=== PATIENT | male | born 1980 | race Caucasian/White ===

== ENCOUNTER 2018-08-18 10:45 | Observation (INO) | payer OTHER ==
[2018-08-18] MEDS ORDERED: HYDROmorphONE/DILAUDID 2 MG/ML INJ IVP ONE (11:16)
[2018-08-18] MEDS ORDERED: ONDANSETRON 4 MG/2 ML VIAL IVP ONE (11:16)
[2018-08-18] MEDS ORDERED: NS 1,000 ML IV ONE (11:16)
--- NOTE | 2018-08-18 11:31 | EDPHY ---
H & P Stated Complaint: RLQ pain since yesterday;sent from [facility] for eval Time Seen by Provider: 08/18/18 11:31 HPI/ROS: HPI: This is a 38-year-old male who presents with Chief Complaint: RLQ pain since yesterday;sent from [facility] for eval Location: Right lower quadrant abdominal Quality: Pain Duration: Since yesterday afternoon lunch Signs and Symptoms: no fever, no nausea, no vomiting, no hematemesis, no blood in stool, no abdominal bloating, no diarrhea, no back pain, no urinary symptoms , no testicular/groin pain, no indigestion, no chest pain, no shortness of breath Timing: Acute, constant Severity: Moderate Context: Patient is generally healthy, presents with sudden onset of periumbilical pain yesterday after lunch that has now radiated into his right lower quadrant. Pain in his right lower quadrant is constant, moderate. He has not eaten anything since yesterday at lunch. He denies any urinary symptoms , nausea, vomiting, fever. He had a bowel movement this morning and felt some pressure in his back. He thought yesterday he may have had some gas pain but the symptoms have persisted. No history of kidney stones. Modifying Factors: None Comment: ROS: A comprehensive 10 system review of systems is otherwise negative aside from elements mentioned in the history of present illness. MEDICAL/SURGICAL/SOCIAL HISTORY: Medical history: Generally healthy. Does not take any regular medications. Surgical history: Denies Social history: Former smoker. Enrolled in master's program. Family history noncontributory. CONSTITUTIONAL: Extremely polite and cooperative, nontoxic-appearing, obese white male, awake and alert, no obvious distress HEENT: Atraumatic and normocephalic, PERRL, EOMI. Nares patent; no rhinorrhea; no nasal mucosal edema. Tympanic membranes clear. Oropharynx clear, no exudate and moist pink mucosa. Airway patent. No lymphadenopathy. No meningismus. Cardiovascular: Normal S1/S2, regular rate, regular rhythm, without murmur rub or gallop. PULMONARY/CHEST: Symmetrical and nontender. Clear to auscultation bilaterally. Good air movement. No accessory muscle usage. ABDOMEN: Soft, nondistended, moderate right lower quadrant tenderness, no rebound, + guarding, no peritoneal signs, no masses or organomegaly. No CVAT. EXTREMITIES: 2/2 pulses, strength 5/5, no deformities, no clubbing, no cyanosis or edema. NEUROLOGICAL: no focal neuro deficits. GCS 15. SKIN: Warm and dry, no erythema. no rash. Good capillary refill. Source: Patient Exam Limitations: No limitations - Personal History Current Tetanus Diphtheria and Acellular Pertussis (TDAP): Yes - Social History Smoking Status: Former smoker Constitutional: Initial Vital Signs Temperature (C) 36.7 C 08/18/18 10:47 Heart Rate 65 08/18/18 10:47 Respiratory Rate 16 08/18/18 10:47 Blood Pressure 132/88 H 08/18/18 10:47 O2 Sat (%) 96 08/18/18 10:47 O2 Delivery Mode Room Air Allergies/Adverse Reactions: No Known Allergies Allergy (Verified 08/18/18 13:05) Home Medications: Medication Instructions Recorded NK [No Known Home Meds] 08/18/18 Medical Decision Making ED Course/Re-evaluation: Vital signs reviewed and stable upon arrival. IV access and laboratory studies obtain. Given 1 L normal saline, IV Dilaudid 0.5 mg, IV Zofran [address] abdomen and pelvis scan ordered to evaluate for appendicitis. 1200: Labs reviewed. No signs of anemia/platelet dysfunction/LIGIA/elevated LFTs /electrolyte imbalance/pancreatitis. WBC 112.75, concerning for leukemia 1245: Called by Radiology, Dr. Snider, who advised that CT abdomen and pelvis scan shows acute appendicitis measuring 11 mm. Given Meropenem after consultation with attending. Called lab and they are working on the differential regarding the elevated white blood cell count. 1250: ED decision to consult General surgery. Spoke with Dr. Walker, who kindly agrees to admit patient and perform appendectomy. Patient understands that he will need oncology consult regarding his elevated white blood cell count. 1305: Consult Oncology. Spoke with Dr. Chan Morrow. reviewed labs. Suspect leukemoid reaction. Will kindly consult on patient. This patient was seen under the supervision of my secondary supervising physician. I evaluated care for this patient independently. Discussed this patient with Dr. Esparza. Differential Diagnosis: Abdominal pain including but not limited to appendicitis, cholecystitis, gastritis and urinary tract infection. - Data Points Laboratory Results: Laboratory Results 08/18/18 11:13 08/18/18 11:13 08/18/18 08/18/18 08/18/18 11:18 11:13 11:13 WBC 112.75 10^3/uL H* 10^3/uL (3.80-9.50) RBC 4.45 10^6/uL 10^6/uL (4.40-6.38) Hgb 14.0 g/dL g/dL (13.7-17.5) POC Hgb 15.6 gm/dL gm/dL (13.7-17.5) Hct 42.2 % % (40.0-51.0) POC Hct 46 % % (40-51) MCV 94.8 fL fL (81.5-99.8) MCH 31.5 pg pg (27.9-34.1) MCHC 33.2 g/dL g/dL (32.4-36.7) RDW 15.9 % H % (11.5-15.2) Plt Count 214 10^3/uL 10^3/uL (150-400) MPV 9.8 fL fL (8.7-11.7) Neut % (Auto) Not Reported Lymph % (Auto) Not Reported [place] % (Auto) Not Reported Eos % (Auto) Not Reported Baso % (Auto) Not Reported Nucleat RBC Rel Count Not Reported Absolute Neuts (auto) Not Reported Absolute Lymphs (auto) Not Reported Absolute Monos (auto) Not Reported Absolute Eos (auto) Not Reported Absolute Basos (auto) Not Reported Absolute Nucleated RBC Not Reported Immature Gran % Not Reported Immature Gran # Not Reported Platelet Estimate Pending Smear Review By Pending POC Sodium 140 mEq/L mEq/L (135-145) Sodium 139 mEq/L mEq/L (135-145) POC Potassium 3.7 mEq/L mEq/L (3.3-5.0) Potassium 4.0 mEq/L mEq/L (3.3-5.0) POC Chloride 104 mEq/L mEq/L (97-110) Chloride 102 mEq/L mEq/L (97-110) Carbon Dioxide 26 mEq/l mEq/l (22-31) Anion Gap 11 mEq/L mEq/L (6-14) POC BUN 12 mg/dL mg/dL (7-23) BUN 13 mg/dL mg/dL (7-23) Creatinine 1.1 mg/dL mg/dL (0.7-1.3) POC Creatinine 1.1 mg/dL mg/dL (0.7-1.3) Estimated GFR > 60 Glucose 91 mg/dL mg/dL (70-100) POC Glucose 93 mg/dL mg/dL (70-100) Calcium 9.5 mg/dL mg/dL (8.5-10.4) Total Bilirubin 0.9 mg/dL mg/dL (0.1-1.4) Conjugated Bilirubin 0.2 mg/dL mg/dL (0.0-0.5) Unconjugated Bilirubin 0.7 mg/dL mg/dL (0.0-1.1) AST 32 IU/L IU/L (17-59) ALT 44 IU/L IU/L (21-72) Alkaline Phosphatase 60 IU/L IU/L (38-126) Total Protein 7.2 g/dL g/dL (6.3-8.2) Albumin 4.5 g/dL g/dL (3.5-5.0) Lipase 32 IU/L IU/L (23-300) Medications Given: Ceftriaxone Sodium 2 gm/ (Sodium Chloride) 50 mls @ 100 mls/hr IV EDNOW ONE PRN Reason: Protocol Stop: 08/18/18 13:14 Last Admin: 08/18/18 12:52 Dose: Not Given Metronidazole/Sodium Chloride (Flagyl 500 Mg (Premix)) 100 mls @ 100 mls/hr IV EDNOW ONE PRN Reason: Protocol Stop: 08/18/18 13:44 Last Admin: 08/18/18 12:52 Dose: Not Given Discontinued Medications Hydromorphone HCl (Dilaudid) 0.5 mg IVP EDNOW ONE Stop: 08/18/18 11:17 Last Admin: 08/18/18 11:41 Dose: 0.5 mg Sodium Chloride (Ns) 1,000 mls @ 0 mls/hr IV EDNOW ONE; Wide Open PRN Reason: Protocol Stop: 08/18/18 11:17 Last Admin: 08/18/18 11:41 Dose: 1,000 mls Ondansetron HCl (Zofran) 4 mg IVP EDNOW ONE Stop: 08/18/18 11:17 Last Admin: 08/18/18 11:41 Dose: 4 mg Point of Care Test Results: Chemistry 08/18/18 11:18 POC Sodium 140 mEq/L mEq/L (135-145) POC Potassium 3.7 mEq/L mEq/L (3.3-5.0) POC Chloride 104 mEq/L mEq/L (97-110) POC BUN 12 mg/dL mg/dL (7-23) POC Creatinine 1.1 mg/dL mg/dL (0.7-1.3) POC Glucose 93 mg/dL mg/dL (70-100) ISTAT H&H 08/18/18 11:18 POC Hgb 15.6 gm/dL gm/dL (13.7-17.5) POC Hct 46 % % (40-51) Departure - Departure Disposition: [facility] Acute Clinical Impression: Acute appendicitis with localized peritonitis Qualifiers: Appendicitis gangrene presence: without gangrene Appendicitis perforation presence: without perforation Appendicitis abscess presence: without abscess Qualified Code(s): K35.30 - Acute appendicitis with localized peritonitis, without perforation or gangrene Elevated white blood cell count Qualifiers: Leukocytosis type: other Qualified Code(s): D72.828 - Other elevated white blood cell count Condition: Fair
[2018-08-18] MEDS ORDERED: IOPAMIDOL (ISOVUE-300) 100 ML BTL ONE ×2 (11:45→11:54)
[2018-08-18 12:44] LABS: PLATELET COUNT 214 10^3/uL (150-400)
[2018-08-18] MEDS ORDERED: MEROPENEM 1 GM in NS 100 ML IV ONE (12:51)
--- NOTE | 2018-08-18 13:23 | PDGENHP ---
History and Physical - Chief Complaint abdominal pain - History of Present Illness 38yo M. Had lunch yesterday, ever since had some pain which was initially ascribed to indigestion. The pain persisted and worsened through the night. Overnight, he also endorses chills. When the pain started to shift from benitez- umbilical to RLQ this AM he suspected appendicitis and presented for workup. In the ED c/o RLQ pain 5/10 in intensity, worse with movement, non-radiating. Endorses chills, denies fevers and nausea or vomiting. History Information - Allergies/Home Medication List Allergies/Adverse Reactions: No Known Allergies Allergy (Verified 08/18/18 13:05) Home Medications: NK [No Known Home Meds] 08/18/18 [Last Taken Unknown] I have personally reviewed and updated: family history, medical history, social history, surgical history Past Medical History: occasional GERD, poss gluten allergy per report - Surgical History Reports: no pertinent surgical hx - Family History Additional family history: mom: colon ca, some brain tumors (non-malignant), CAD. 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 Review of Systems Review of Systems: ROS: 10pt was reviewed & negative except for what was stated in HPI & below Physical Exam Physical Exam: Temp Pulse Resp BP Pulse Ox 36.8 C 90 16 129/82 H 97 08/18/18 12:56 08/18/18 12:56 08/18/18 12:56 08/18/18 12:56 08/18/18 12:56 Constitutional: no apparent distress, appears nourished, not in pain Eyes: PERRL, anicteric sclera, EOMI Ears, Nose, Mouth, Throat: moist mucous membranes, hearing normal, ears appear normal, no oral mucosal ulcers Cardiovascular: regular rate and rhythym, no murmur, rub, or gallop, No edema Respiratory: no respiratory distress, no rales or rhonchi, clear to auscultation Gastrointestinal: other (soft, nondistended, TTP in the RLQ, no rebound or guarding ) Genitourinary: no bladder fullness, no bladder tenderness Skin: warm, normal color, no rashes or abrasions, no fluctuance, no induration, No mottled Musculoskeletal: full muscle strength, no muscle tenderness, normal joint ROM, no joint effusions Psychiatric: interacting appropriately, not anxious, not encephalopathic, thought process linear Lymph, Heme, Immunologic: no cervical LAD, no supraclavicular LAD Lab Data & Imaging Review 08/18/18 11:13 08/18/18 11:13 WBC 112.75 10^3/uL (3.80-9.50) H* 08/18/18 11:13 RBC 4.45 10^6/uL (4.40-6.38) 08/18/18 11:13 Hgb 14.0 g/dL (13.7-17.5) 08/18/18 11:13 POC Hgb 15.6 gm/dL (13.7-17.5) 08/18/18 11:18 Hct 42.2 % (40.0-51.0) 08/18/18 11:13 POC Hct 46 % (40-51) 08/18/18 11:18 MCV 94.8 fL (81.5-99.8) 08/18/18 11:13 MCH 31.5 pg (27.9-34.1) 08/18/18 11:13 MCHC 33.2 g/dL (32.4-36.7) 08/18/18 11:13 RDW 15.9 % (11.5-15.2) H 08/18/18 11:13 Plt Count 214 10^3/uL (150-400) 08/18/18 11:13 MPV 9.8 fL (8.7-11.7) 08/18/18 11:13 Neut % (Auto) Not Reported 08/18/18 11:13 Lymph % (Auto) Not Reported 08/18/18 11:13 [place] % (Auto) Not Reported 08/18/18 11:13 Eos % (Auto) Not Reported 08/18/18 11:13 Baso % (Auto) Not Reported 08/18/18 11:13 Nucleat RBC Rel Count Not Reported 08/18/18 11:13 Absolute Neuts (auto) Not Reported 08/18/18 11:13 Absolute Lymphs (auto) Not Reported 08/18/18 11:13 Absolute Monos (auto) Not Reported 08/18/18 11:13 Absolute Eos (auto) Not Reported 08/18/18 11:13 Absolute Basos (auto) Not Reported 08/18/18 11:13 Absolute Nucleated RBC Not Reported 08/18/18 11:13 Immature Gran % Not Reported 08/18/18 11:13 Seg Neutrophils % 50.9 % 08/18/18 11:13 Band Neutrophils % 9.3 % 08/18/18 11:13 Lymphocytes % 11.1 % 08/18/18 11:13 Monocytes % 4.6 % 08/18/18 11:13 Eosinophils % 1.9 % 08/18/18 11:13 Basophils % 0.9 % 08/18/18 11:13 Metamyelocytes % 7.4 % 08/18/18 11:13 Myelocytes % 9.3 % 08/18/18 11:13 Promyelocytes % 4.6 % 08/18/18 11:13 Immature Gran # Not Reported 08/18/18 11:13 Absolute Seg Neuts 55.00 10^3/uL (1.70-6.50) H 08/18/18 11:13 Absolute Band Neuts 10.00 10^3/uL (0.00-0.70) H 08/18/18 11:13 Absolute Lymphocytes 12.00 10^3/uL (1.00-3.00) H 08/18/18 11:13 Absolute Monocytes 5.00 10^3/uL (0.30-0.80) H 08/18/18 11:13 Absolute Eosinophils 2.00 10^3/uL (0.03-0.40) H 08/18/18 11:13 Absolute Basophils 1.00 10^3/uL (0.02-0.10) H 08/18/18 11:13 Absolute Metamyelocyte 8.00 10^3/mL (0.00-0.00) H 08/18/18 11:13 Absolute Myelocytes 10.00 10^3/mL (0.00-0.00) H 08/18/18 11:13 Absolute Promyelocytes 5.00 10^3/uL (0.00-0.00) H 08/18/18 11:13 Platelet Estimate ADEQUATE (ADEQ) 08/18/18 11:13 Polychromasia 2+ H 08/18/18 11:13 POC Sodium 140 mEq/L (135-145) 08/18/18 11:18 Sodium 139 mEq/L (135-145) 08/18/18 11:13 POC Potassium 3.7 mEq/L (3.3-5.0) 08/18/18 11:18 Potassium 4.0 mEq/L (3.3-5.0) 08/18/18 11:13 POC Chloride 104 mEq/L (97-110) 08/18/18 11:18 Chloride 102 mEq/L (97-110) 08/18/18 11:13 Carbon Dioxide 26 mEq/l (22-31) 08/18/18 11:13 Anion Gap 11 mEq/L (6-14) 08/18/18 11:13 POC BUN 12 mg/dL (7-23) 08/18/18 11:18 BUN 13 mg/dL (7-23) 08/18/18 11:13 Creatinine 1.1 mg/dL (0.7-1.3) 08/18/18 11:13 POC Creatinine 1.1 mg/dL (0.7-1.3) 08/18/18 11:18 Estimated GFR > 60 08/18/18 11:13 Glucose 91 mg/dL (70-100) 08/18/18 11:13 POC Glucose 93 mg/dL (70-100) 08/18/18 11:18 Calcium 9.5 mg/dL (8.5-10.4) 08/18/18 11:13 Total Bilirubin 0.9 mg/dL (0.1-1.4) 08/18/18 11:13 Conjugated Bilirubin 0.2 mg/dL (0.0-0.5) 08/18/18 11:13 Unconjugated Bilirubin 0.7 mg/dL (0.0-1.1) 08/18/18 11:13 AST 32 IU/L (17-59) 08/18/18 11:13 ALT 44 IU/L (21-72) 08/18/18 11:13 Alkaline Phosphatase 60 IU/L (38-126) 08/18/18 11:13 Total Protein 7.2 g/dL (6.3-8.2) 08/18/18 11:13 Albumin 4.5 g/dL (3.5-5.0) 08/18/18 11:13 Lipase 32 IU/L (23-300) 08/18/18 11:13 Visualized and Interpreted imaging results: Yes Interpretation: CT: acute appendicitis, normal spleen, no lymphadenopathy Assessment & Plan Assessment: Acute appendicitis with localized peritonitis (Acute) Elevated white blood cell count (Acute) Plan: 38yo M c acute appendicitis - IV abx in ED. To OR for lap appy - also has significantly elevated WBC of 112k, has asked heme/onc to eval the patient, unclear etiology but no "B" type Sx and no concerning findings on abdominal imaging
[2018-08-18] MEDS ORDERED: BUPIVACAINE 0.25% 30 ML SDV ONE (13:40)
[2018-08-18] MEDS ORDERED: EPINEPHrine 1 MG/ML INJ ONE (13:40)
[2018-08-18] MEDS ORDERED: CITRIC ACID/SODIUM CITRATE 30 ML UDCUP PO ONE (14:00)
--- NOTE | 2018-08-18 14:00 | PDANEPAE ---
ANE Past Medical History - Cardiovascular History Hx Hypertension: No Hx Arrhythmias: No Hx Chest Pain: No Hx Coronary Artery / Peripheral Vascular Disease: No Hx CHF / Valvular Disease: No Hx Palpitations: No - Pulmonary History Hx COPD: No Hx Asthma/Reactive Airway Disease: No Hx Recent Upper Respiratory Infection: No Hx Oxygen in Use at Home: No Hx Sleep Apnea: No ANE Review of Systems Review of Systems: ANE Patient History - Allergies Allergies/Adverse Reactions: No Known Allergies Allergy (Verified 08/18/18 13:05) - Home Medications Home Medications: NK [No Known Home Meds] 08/18/18 [Last Taken Unknown] - NPO status NPO Since - Liquids (Date): 08/18/18 NPO Since - Liquids (Time): 09:00 NPO Since - Solids (Date): 08/17/18 NPO Since - Solids (Time): 13:00 - Smoking Hx Smoking Status: Former smoker - Alcohol Use Alcohol Use: Occasionally ANE Labs/Vital Signs - Labs Result Diagrams: 08/18/18 11:13 08/18/18 11:13 - Vital Signs Blood Pressure: 125/77 Heart Rate: 76 Respiratory Rate: 16 O2 Sat (%): 96 Height: 172.72 cm Weight: 111.13 kg ANE Physical Exam - Airway Neck exam: FROM Mallampati Score: Class 1 Mouth exam: normal dental/mouth exam - Pulmonary Pulmonary: no respiratory distress - Cardiovascular Cardiovascular: regular rate and rhythym - ASA Status ASA Status: II ANE Anesthesia Plan Anesthesia Plan: general endotracheal anesthesia
[2018-08-18] MEDS ORDERED: CITRIC ACID/SODIUM CITRATE 30 ML UDCUP ONE (14:02)
[2018-08-18] MEDS ORDERED: PROPOFOL 200 MG/20 ML VIAL ONE ×2 (14:04→14:21)
[2018-08-18] MEDS ORDERED: fentaNYL 250 MCG/5 ML INJ ONE (14:04)
[2018-08-18] MEDS ORDERED: DEXAMETHASONE 4 MG/ML VIAL ONE (14:43)
[2018-08-18] MEDS ORDERED: GLYCOPYRROLATE 0.2 MG/1 ML VIAL ONE ×3 (14:43)
[2018-08-18] MEDS ORDERED: LIDOCAINE 2% 5 ML SDV ONE (14:44)
[2018-08-18] MEDS ORDERED: ONDANSETRON 4 MG/2 ML VIAL ONE (14:44)
[2018-08-18] MEDS ORDERED: ROCURONIUM 100 MG/10 ML VIAL ONE (14:44)
[2018-08-18] MEDS ORDERED: SUGAMMADEX SODIUM 200 MG/2 ML VIAL IVP ONE (14:57)
[2018-08-18] MEDS ORDERED: ONDANSETRON 4 MG/2 ML VIAL IVP PRN (15:02)
[2018-08-18] MEDS ORDERED: ACETAMINOPHEN 325 MG TAB PO PRN (15:02)
--- NOTE | 2018-08-18 15:02 | POSTOPPROG ---
Post Op Note Date of Operation: 08/18/18 Surgeon: Vicente Walker Anesthesiologist: Ashley Anesthesia: GET(General Endotracheal) Pre-op Diagnosis: appendicitis Post-op Diagnosis: same Procedure: Lararoscopic appendectomy Findings: acute, non perforated Inf/Abcess present in the surg proc area at time of surgery?: No EBL: Minimal Total fluids administered: 750cc NS washout Specimen(s): appendix
[2018-08-18] MEDS ORDERED: oxyCODONE IR 5 MG TAB PO PRN (15:04)
[2018-08-18] MEDS ORDERED: KETOROLAC 30 MG/1 ML SDV ONE (15:07)
[2018-08-18] MEDS ORDERED: NALOXONE HCL 0.4 MG/ML INJ IVP PRN (15:11)
[2018-08-18] MEDS ORDERED: PROMETHAZINE HCL 25 MG/ML INJ IVP PRN (15:11)
--- NOTE | 2018-08-18 15:13 | POSTANESTH ---
Post Anesthetic Evaluation Cardiovascular Status: Normal, Stable Respiratory Status: Normal, Stable Level of Consciousness/Mental Status: Can Participate in Eval Pain Control: Adequate, Prn Tx Ordered Nausea/Vomiting Control: Adequate, Prn Tx Ordered Complications Possibly Related to Anesthesia: None Noted
[2018-08-18] MEDS ORDERED: fentaNYL 100 MCG/2 ML INJ ONE (15:24)
[2018-08-18] MEDS ORDERED: KETOROLAC 30 MG/1 ML SDV IVP ONE (15:30)
[2018-08-18] MEDS: fentaNYL 100 MCG/2 ML INJ IVP PRN ×2 (15:30→15:44)
--- NOTE | 2018-08-18 16:20 | GOP ---
DATE OF OPERATION: 08/18/2018 SURGEON: Vicente Walker MD FASHION PHOTOGRAPHER: None. ANESTHESIA: General endotracheal. ANESTHESIOLOGIST: Dr. Ramirez. PREOPERATIVE DIAGNOSIS: Acute appendicitis. POSTOPERATIVE DIAGNOSIS: Acute appendicitis. PROCEDURE PERFORMED: Laparoscopic appendectomy. FINDINGS: Acute, indurated, nonperforated appendicitis. SPECIMENS: Appendix. ESTIMATED BLOOD LOSS: 5 cc. DESCRIPTION OF PROCEDURE: The patient was greeted in the preoperative suite. Once again, risks, claire efits, and alternatives were discussed. Consent was signed. He was brought back to the operative portillo ite, placed on the OR table in supine position. After all anesthesia machines including SCDs were on and functioning, [facility] time-out was performed. After successful induction of ge neral anesthesia, the patient's abdomen was prepped and draped in the typical sterile fashion. I com menced the procedure by making an infraumbilical cutdown, through which the Veress needle was passed. Through this I inserted the Veress needle. I achieved pneumoperitoneum to 15 mmHg, which was well tolerated by the patient. I then inserted a 12 mm Visiport through this site. Once successfully in the abdomen, I placed 2 additional 5 mm trocars, 1 in the suprapubic, 1 in the left lower quadrant, b oth under direct visualization. I then successfully identified the appendix by tracing the taeniae i nferiorly. The first thing I did was created a window at the base of the appendix and successfully a mputated the appendix from the cecal base using a single fire of the Endo SAVANNAH blue load stapler. Aft er successfully amputated, the mesoappendix was successfully skeletonized and, in the same fashion, t aken with an Endo-SAVANNAH white load stapler. The appendix was then placed in an EndoCatch bag and remov ed. I then assessed my staple lines, which were clean, dry, and hemostatic. I irrigated the right l ower quadrant as well as the pelvis with a liter of sterile saline, noting clear effluent in the suct ion canister. Once this was done, I once again went and inspected my staple lines, which were intact and hemostatic. I then infiltrated local anesthesia into the port sites and removed them. I evacua telma my pneumoperitoneum. I closed my infraumbilical port site with an interrupted 0 Vicryl stitch, n oting excellent fascial reapproximation. The skin was closed with Monocryl over which Dermabond was placed. The patient was then extubated in the operative suite and taken to PACU in satisfactory cond ition. DRAINS: None. COUNTS: All counts were reported as correct x2. /[id number]/MODL
[2018-08-18] MEDS: D5W 1/2 NS W/ 20 KCl/L 1,000 ML IV SCH (17:01)
[2018-08-18] MEDS: HYDROmorphONE/DILAUDID 1 MG/ML INJ IVP PRN ×2 (17:04→19:31)
--- NOTE | 2018-08-18 20:07 | GCON ---
HEMATOLOGY CONSULTATION DATE OF CONSULTATION: 08/18/2018 REASON FOR CONSULTATION: Leukocytosis. HISTORY OF PRESENT ILLNESS: The patient is a pleasant 38-year-old gentleman who presented to the [facility] earlier today with a chief complaint of abdominal pain. This began approximately 2 4 hours prior after eating lunch. The patient had fever and chills overnight. The pain became more intense, and he presented to the emergency department. A CT of the abdomen performed earlier today r evealed evidence of early acute appendicitis. There was no evidence of adenopathy. No splenomegaly. The CT was otherwise unremarkable. The patient's white count upon presentation in the emergency de partment was 112,000. He has a normal hemoglobin, normal hematocrit, and normal platelet count. The differential consists of mainly neutrophils. The patient was taken to the operating room by Dr. Krysta patterson and underwent an appendectomy earlier today. When seen this evening, he is resting comfortab ly in bed. He denies any other symptoms prior to the last 24 hours. He specifically denies any recent history o f infections, weight loss, fatigue. I have reviewed his peripheral blood smear which appears consistent with a leukemoid reaction. PAST MEDICAL HISTORY: Essentially unremarkable. ALLERGIES: Patient has no known drug allergies. PAST SURGICAL HISTORY: None. FAMILY MEDICAL HISTORY: Patient's mother had colorectal cancer. 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 He has no children. He smokes in termittently. He drinks alcohol occasionally. REVIEW OF SYSTEMS: As outlined above. Remainder of 10-point review of systems otherwise negative. PHYSICAL EXAM: GENERAL: The patient is resting comfortably in bed. He is in no acute distress. HE ENT: Pupils equal. Sclerae nonicteric. Conjunctiva normal. No evidence of mucosal bleeding. HEAR T: Regular without murmur. LUNGS: Clear bilaterally. ABDOMEN: Soft with minimal tenderness. No organomegaly. No mass. EXTREMITIES: No extremity swelling or edema. SKIN: No visible skin rash. NEUROLOGIC: Patient alert, oriented, and appropriate. LABORATORY STUDIES: CBC results as per HPI. Sodium 139, potassium 4.0, chloride 102, bicarb 26, BUN 13, creatinine 1.1. Total bilirubin is 0.9. IMPRESSION: 1. Leukocytosis likely representing a leukemoid reaction. 2. Acute appendicitis status post appendectomy. Mr. Forde is a pleasant 38-year-old gentleman who presents with acute appendicitis and a significant leukocytosis of greater than 100,000. I have personally reviewed his peripheral blood smear which co nsists of mostly neutrophils with some immature forms such as myelocytes and metamyelocytes. There a re no blasts seen on his peripheral smear this evening. The overall picture is most consistent with a brisk leukemoid reaction, which is a benign inflammator y leukocytosis that requires no specific intervention and should resolve on its own. The source of i nflammation has been treated via appendectomy, and I would expect a gradual improvement in his white count over the next several days. It is certainly conceivable it could rise a bit higher before decl ining. There is nothing to suggest a malignant cause of his leukocytosis on blood smear, and the rem ainder of his CBC would not be consistent with a malignant process given his normal hemoglobin, hemat ocrit, and platelet count. This was discussed with the patient. His questions were answered. Our service will continue to foll ow him during this hospital stay and would likely see him once in the office at discharge to make keila e that things normalize. Thank you for this consultation. /[id number]/MODL
[2018-08-18] MEDS: IBUPROFEN 600 MG TAB PO SCH (22:19)
[2018-08-19] MEDS: D5W 1/2 NS W/ 20 KCl/L 1,000 ML IV SCH (02:05)
[2018-08-19 05:32] LABS: PLATELET COUNT 204 10^3/uL (150-400)
[2018-08-19] MEDS: IBUPROFEN 600 MG TAB PO SCH ×2 (06:27→09:56)
[2018-08-19 11:51] VITALS: BP 128/77
--- NOTE | 2018-08-19 12:16 | SOAPPROG ---
[facility] Progress Note Assessment/Plan: Assessment: 1. Suspected leukemoid rxn 2. s/P appy, doing well Plan:Possible d/c today. would recommend follow up cbc approx 2 weeks, this could be done with pcp or we would be happy to do at [facility] 08/19/18 12:14 Subjective: Feels better Objective: Vital Signs Temp Pulse Resp BP Pulse Ox 97.7 F 86 16 128/77 H 90 L 08/19/18 11:48 08/19/18 11:48 08/19/18 11:48 08/19/18 11:48 08/19/18 11:48 Laboratory Results 08/19/18 04:50 08/18/18 08/19/18 08/20/18 05:59 05:59 05:59 Intake Total 1650 750 Output Total 1960 1050 Balance -310 -300 ICD10 Worksheet Patient Problems: Problems Problem Status Onset Acute appendicitis with localized peritonitis Acute Elevated white blood cell count Acute
--- NOTE | 2018-08-19 12:30 | PDDCSUM ---
Discharge Summary Discharge Summary: DISCHARGE SUMMARY Date of Admission August 18 Date of Discharge August 19 DISCHARGE DIAGNOSES -acute appendicitis -elevated white blood cell count greater than 100,000 HOSPITAL COURSE The patient was admitted from the ED and taken to the operating room where they underwent an uneventful laparoscopic appendectomy. They were subsequently taken to the PACU and then the general medical floor. The patient had consultation from Hematology Oncology given his significant elevation of white blood cells. They reviewed his peripheral smear in felt that this was likely a leukemoid reaction. He will follow up with them in 2 weeks for repeat CBC. The hospital course was uneventful, their diet was advanced to a regular diet which was well tolerated and their pain was well controlled. They were discharged home in stable condition on the afternoon of the DISCHARGE MEDICATIONS Oxycodone as needed for pain DISPOSITION Home FOLLOW UP Follow up with me in the office in 10-14 days for a general post-operative visit Follow-up with [facility], Dr. Arellano or Dr. Morrow in 2 weeks for repeat CBC
== END 2018-08-19 13:50 | disposition home or self-care (01) ==
LOC: INTOOBSV 12:54 → F3E 16:10
PROVIDERS: ADMIT Surgery; ATTEND Surgery
PROC: 0DTJ4ZZ Resection of Appendix, Percutaneous Endoscopic Approach (ICD-10-PCS; principal; 2018-08-18 14:00)
DX: K35.80 Unspecified acute appendicitis (principal); D72.829 Elevated white blood cell count, unspecified; E86.9 Volume depletion, unspecified; Z87.891 Personal history of nicotine dependence
CPT/HCPCS: 44970; 74177; 96374; 96375; 99285; G0378; 82435-PO; 82565-PO; 82947-PO; 84132-PO; 84295-PO; 84520-PO; 85014-PO; J0171; J0696; J1100; J1170; J1885; J2185; J2405; J2704; J3010; Q9967